=== PATIENT | male | born 1965 | race Asian ===

== ENCOUNTER 2021-04-18 13:56 | Emergency (ER) | payer SELFPAY ==
[~2021-04-18] VITALS: Ht 170.2 cm; Wt 77.3 kg
[2021-04-18] MEDS ORDERED: PERTUSS(ACELL),DIPH,TET VAC/PF 0.5 ML SYRINGE IM. ONE (16:45)
[2021-04-18] MEDS ORDERED: ACETAMINOPHEN 500 MG TABLET PO ONE (16:45)
[2021-04-18] MEDS ORDERED: BACITRACIN 0.9 GM PACKET OINTMENT TP ONE (16:45)
[2021-04-18 18:00] VITALS: BP 140/72
== END 2021-04-18 18:46 | disposition home or self-care (01) ==
LOC: EMS 14:00
DX: S40.212A Abrasion of left shoulder, initial encounter (principal); S80.211A Abrasion, right knee, initial encounter; V87.8XXA Person injured in other specified noncollision transport accidents involving motor vehicle (traffic), initial encounter; Y93.89 Activity, other specified; Y92.488 Other paved roadways as the place of occurrence of the external cause; Y99.8 Other external cause status
CPT/HCPCS: 90471; 90715; 99284